=== PATIENT | male | born 1965 | race Two or more races ===

== ENCOUNTER 2020-02-15 18:06 | Inpatient (IN) | payer MEDICARE, OTHER ==
[~2020-02-15] VITALS: Ht 182.9 cm; Wt 127.0 kg
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
[2020-02-16 02:16] VITALS: BP 114/67
[2020-02-16] MEDS ORDERED: ACETAMINOPHEN 325 MG TABLET PO PRN (02:30)
[2020-02-16] MEDS ORDERED: LORAZEPAM 0.5 MG TABLET PO PRN (02:30)
[2020-02-16] MEDS ORDERED: MAGNESIUM HYDROXIDE 30 ML UDC PO PRN (02:30)
[2020-02-16] MEDS ORDERED: ATOR40TA PO (03:03)
[2020-02-16] MEDS ORDERED: LISI40TA4 PO (03:03)
[2020-02-16] MEDS ORDERED: DIVA250T PO (03:03)
[2020-02-16] MEDS ORDERED: SENN-148 PO (03:03)
[2020-02-16] MEDS ORDERED: PENI500T PO (03:03)
[2020-02-16] MEDS ORDERED: CARV6.252 PO (03:03)
[2020-02-16] MEDS ORDERED: ASPI-1169 PO (03:03)
[2020-02-16] MEDS ORDERED: TRAZ-257 PO (03:03)
[2020-02-16 08:00] VITALS: BP 133/79
[2020-02-16] MEDS: ASPIRIN 81 MG TAB.CHEW PO SCH (08:45)
[2020-02-16] MEDS: LISINOPRIL (20MG) 20 MG TABLET PO SCH (08:45)
[2020-02-16] MEDS: CARVEDILOL 6.25 MG TABLET PO SCH ×3 (08:45→17:07)
[2020-02-16] MEDS: ATORVASTATIN 40 MG TABLET PO SCH (08:45)
--- NOTE | 2020-02-16 08:46 | NUR ---
RN NOTE: PT C/O INCREASING ANXIETY. REQUESTING ATIVAN. ATIVAN 0.5 MG PO PRN ADMINISTERED
--- NOTE | 2020-02-16 10:38 | NUR ---
WOUND CARE CONSULT: PT PRESENTS WITH LONG TOENAILS WHICH ARE JAGGED AND HEEL CALLUSES, PRESENT ON ADMISSION. RECOMMEND DPM CONSULT. DR MORRELL NOTIFIED OF DPM CONSULT REQUEST. PT IS INDEPENDENT WITH BED MOBILITY AND IS CONTINENT. WILL SEE PRN.
--- NOTE | 2020-02-16 14:41 | NUR ---
Individual Counseling: This SW met with pt. at bedside to facilitate therapeutic milieu regarding support systems. However, the pt. was sleeping and not easily rousable by verbal cues. Patient will be invited to participate in future counseling session.
[2020-02-16 16:00] VITALS: BP 119/75
[2020-02-16] MEDS: VITAMINS A AND D 56.7 GM TUBE TP SCH (17:07)
[2020-02-16] MEDS ORDERED: DIVALPROEX SODIUM 500 MG TABLET.DR PO SCH (17:30)
[2020-02-16] MEDS: BENZTROPINE MESYLATE (1 MG) 1 MG TABLET PO SCH ×2 (17:56→20:56)
[2020-02-16] MEDS: risperiDONE 1 MG TABLET PO SCH ×2 (17:56→20:56)
[2020-02-16] MEDS: SENNOSIDES 8.6 MG TABLET PO SCH (17:56)
[2020-02-16 20:24] VITALS: BP 129/77
[2020-02-16] MEDS: TEMAZEPAM 7.5 MG CAPSULE PO PRN (21:24)
--- NOTE | 2020-02-16 21:25 | NUR ---
GPS-RN NOTE: INSOMNIA PATIENT C/O INABILITY TO SLEEP. ADMINISTERED RESTORIL 7.5MG PO ORDERED PER PT'S REQUEST. WILL CONTINUE TO MONITOR FOR PATIENT'S SAFETY.
[2020-02-17 06:37] LABS: BILIRUBIN,TOTAL 0.3 mg/dL (0.2-1.0); CALCIUM, SERUM 8.5 mg/dL (8.5-10.1); CREATININE 0.8 mg/dL (0.6-1.3); POTASSIUM 4.3 mmol/L (3.5-5.1); TOTAL PROTEIN, SERUM 6.9 g/dL (6.4-8.2)
[2020-02-17 08:00] VITALS: BP 130/86
[2020-02-17] MEDS: BENZTROPINE MESYLATE (1 MG) 1 MG TABLET PO SCH ×2 (08:33→22:10)
[2020-02-17] MEDS: ASPIRIN 81 MG TAB.CHEW PO SCH (08:33)
[2020-02-17] MEDS: LISINOPRIL (20MG) 20 MG TABLET PO SCH (08:33)
[2020-02-17] MEDS: ATORVASTATIN 40 MG TABLET PO SCH (08:33)
[2020-02-17] MEDS: risperiDONE 1 MG TABLET PO SCH ×4 (08:33→22:10)
[2020-02-17] MEDS: VITAMINS A AND D 56.7 GM TUBE TP SCH ×2 (08:35→16:42)
[2020-02-17] MEDS: CARVEDILOL 6.25 MG TABLET PO SCH ×2 (08:42→16:42)
--- NOTE | 2020-02-17 10:46 | NUR ---
INITIAL DISCHARGE PLAN: Pt is homeless and wishes to be placed at a SNF. SW will refer pt to a SNF and help form a safe and proper discharge in collaboration with .
[2020-02-17 16:00] VITALS: BP 138/99
[2020-02-17] MEDS: DIVALPROEX SODIUM 500 MG TABLET.DR PO SCH (16:41)
[2020-02-17] MEDS: SENNOSIDES 8.6 MG TABLET PO SCH (17:22)
[2020-02-17] MEDS: LORAZEPAM 0.5 MG TABLET PO PRN (20:31)
[2020-02-17 20:54] VITALS: BP 138/87
[2020-02-17] MEDS: TEMAZEPAM 7.5 MG CAPSULE PO PRN (22:09)
[2020-02-18 08:00] VITALS: BP 129/76
[2020-02-18] MEDS: ATORVASTATIN 40 MG TABLET PO SCH (08:31)
[2020-02-18] MEDS: BENZTROPINE MESYLATE (1 MG) 1 MG TABLET PO SCH ×2 (08:31→20:31)
[2020-02-18] MEDS: CARVEDILOL 6.25 MG TABLET PO SCH ×2 (08:32→16:44)
[2020-02-18] MEDS: ASPIRIN 81 MG TAB.CHEW PO SCH (08:32)
[2020-02-18] MEDS: LISINOPRIL (20MG) 20 MG TABLET PO SCH (08:32)
[2020-02-18] MEDS: VITAMINS A AND D 56.7 GM TUBE TP SCH ×2 (08:35→16:46)
--- NOTE | 2020-02-18 13:15 | NUR ---
GPS/RN-NOTES PATIENT WATCHING TV IN THE DAY ROOM,CALM NO ACUTE DISTRESS NOTED.
[2020-02-18] MEDS: risperiDONE 1 MG TABLET PO SCH ×2 (13:17→20:29)
[2020-02-18] MEDS: LORAZEPAM 0.5 MG TABLET PO PRN ×2 (14:20→22:36)
--- NOTE | 2020-02-18 14:20 | NUR ---
GPS/RN-NOTES NOTED PATIENT PUSHING OTHER PATIENT IN THE HALLWAY ANGRY WITH OTHER PATIENT SCREAMING AND YELLING BEHAVIOR. REDIRECTED PATIENT. PATIENT REQUESTING FOR ATIVAN STATED" CAN I HAVE ATIVAN FOR MY ANXIETY" ATIVAN 1MG P.O GIVEN PRN ORDER. WILL CONT. MONITORING FOR SAFETY AND BEHAVIOR.
[2020-02-18 16:00] VITALS: BP 140/77
[2020-02-18] MEDS: DIVALPROEX SODIUM 500 MG TABLET.DR PO SCH (16:41)
[2020-02-18] MEDS: SENNOSIDES 8.6 MG TABLET PO SCH (18:31)
--- NOTE | 2020-02-18 20:00 | NUR ---
Assessment: yamilex suicide ideation. Means: Any possible mechanism but voiced using pills. Hx cutting wrist, patient stated. However, patient behavior remained compliant with unit rules. Will continue to monitor.
[2020-02-18 20:48] VITALS: BP 102/75
[2020-02-18] MEDS: TEMAZEPAM 7.5 MG CAPSULE PO PRN (22:36)
--- NOTE | 2020-02-19 02:00 | NUR ---
Patient remained cooperative. Alert and oriented x2. Follows instruction. Compliant with all unit rules. Requested Ativan 1 mg and Temazepam 7.5 mg PO PRN medication. Tolerated well. Will continue to monitor behavior and medication effectiveness..
[2020-02-19 07:08] LABS: BASOPHILS % (AUTO) 0.6 % (0.0-2.0); EOSINOPHILS % (AUTO) 2.7 % (0.0-6.0); HEMATOCRIT 38 % (39-51); HEMOGLOBIN 13.3 g/dL (13.5-17.5); LYMPHOCYTES # (AUTO) 2.3 /CMM (0.8-4.8); LYMPHOCYTES % (AUTO) 44.1 % (20.0-44.0); MEAN CORPUSCULAR HGB CONC 35 g/dl (31.0-36.0); MEAN CORPUSCULAR VOLUME 89 fL (80-96); MONOCYTES # (AUTO) 0.5 /CMM (0.1-1.30); MONOCYTES % (AUTO) 8.9 % (2.0-12.0); NEUTROPHILS # (AUTO) 2.3 /CMM (1.8-8.9); NEUTROPHILS % (AUTO) 43.7 % (43.0-81.0); PLATELET COUNT (AUTO) 334 /CMM (150-450); WHITE BLOOD COUNT (AUTO) 5.2 K/uL (4.3-11.0)
[2020-02-19 07:20] LABS: ALBUMIN 2.9 g/dL (3.4-5.0); BILIRUBIN,TOTAL 0.3 mg/dL (0.2-1.0); CALCIUM, SERUM 8.4 mg/dL (8.5-10.1); CREATININE 0.7 mg/dL (0.6-1.3); POTASSIUM 4.1 mmol/L (3.5-5.1); TOTAL PROTEIN, SERUM 6.7 g/dL (6.4-8.2)
[2020-02-19 08:00] VITALS: BP 126/87
[2020-02-19] MEDS: risperiDONE 1 MG TABLET PO SCH ×3 (08:25→20:33)
[2020-02-19] MEDS: BENZTROPINE MESYLATE (1 MG) 1 MG TABLET PO SCH ×2 (08:25→20:33)
[2020-02-19] MEDS: ASPIRIN 81 MG TAB.CHEW PO SCH (08:25)
[2020-02-19] MEDS: ATORVASTATIN 40 MG TABLET PO SCH (08:26)
[2020-02-19] MEDS: LISINOPRIL (20MG) 20 MG TABLET PO SCH (08:26)
[2020-02-19] MEDS: CARVEDILOL 6.25 MG TABLET PO SCH ×2 (08:26→16:40)
[2020-02-19] MEDS: VITAMINS A AND D 56.7 GM TUBE TP SCH ×2 (08:36→16:42)
--- NOTE | 2020-02-19 12:31 | NUR ---
SNF Referral: KRISTEN faxed a referral to [facility] with attn to Gio and JENA to the fax number: [phone].
--- NOTE | 2020-02-19 15:02 | NUR ---
INDIVIDUAL INTERVENTION: SW attempted to meet with pt to discuss his symptoms of depression. Pt was asleep and not easily aroused by verbal cues.
[2020-02-19 16:00] VITALS: BP 136/87
[2020-02-19] MEDS: DIVALPROEX SODIUM 500 MG TABLET.DR PO SCH (16:39)
[2020-02-19] MEDS: SENNOSIDES 8.6 MG TABLET PO SCH (17:00)
[2020-02-19 20:40] VITALS: BP 103/60
[2020-02-19] MEDS: LORAZEPAM 0.5 MG TABLET PO PRN (22:40)
[2020-02-19] MEDS: TEMAZEPAM 7.5 MG CAPSULE PO PRN (22:41)
[2020-02-20 08:00] VITALS: BP 145/86
[2020-02-20] MEDS: DIVALPROEX SODIUM 250 MG TABLET.DR PO SCH ×3 (08:30→17:57)
[2020-02-20] MEDS: ASPIRIN 81 MG TAB.CHEW PO SCH (08:31)
[2020-02-20] MEDS: BENZTROPINE MESYLATE (1 MG) 1 MG TABLET PO SCH ×3 (08:31→20:30)
[2020-02-20] MEDS: CARVEDILOL 6.25 MG TABLET PO SCH ×2 (08:31→17:43)
[2020-02-20] MEDS: ATORVASTATIN 40 MG TABLET PO SCH (08:31)
[2020-02-20] MEDS: risperiDONE 1 MG TABLET PO SCH ×3 (08:31→20:30)
[2020-02-20] MEDS: LISINOPRIL (20MG) 20 MG TABLET PO SCH (08:32)
[2020-02-20] MEDS: VITAMINS A AND D 56.7 GM TUBE TP SCH ×2 (08:36→17:43)
--- NOTE | 2020-02-20 12:28 | NUR ---
SNF Referral: KRISTEN faxed the pts Medicare information to [facility] with attn to Gio and JENA to the fax number: [phone].
--- NOTE | 2020-02-20 14:27 | NUR ---
SNF Contact: JENA ([phone]), field care coordinator at [facility], contacted the SW and stated that the pt was accepted to their facility.
[2020-02-20 16:08] VITALS: BP 120/71
[2020-02-20] MEDS ORDERED: DIVALPROEX SODIUM 500 MG TABLET.DR PO SCH (17:00)
[2020-02-20] MEDS ORDERED: DIVALPROEX SODIUM 250 MG TABLET.DR PO SCH ×2 (17:30)
[2020-02-20] MEDS: SENNOSIDES 8.6 MG TABLET PO SCH (17:42)
--- NOTE | 2020-02-20 18:56 | NUR ---
GPS/RN-NOTES PATIENT TOOK $6.00 ON HIS MONEY. BALANCE OF TODAY WAS $35.OO.
[2020-02-20 20:18] VITALS: BP 130/64
[2020-02-20] MEDS: LORAZEPAM 0.5 MG TABLET PO PRN (21:28)
[2020-02-20] MEDS: TEMAZEPAM 7.5 MG CAPSULE PO PRN (21:51)
[2020-02-20] MEDS: MAG HYDROX/AL HYDROX/SIMETH 30 ML UDC PO PRN (22:06)
[2020-02-21 08:00] VITALS: BP 144/89
[2020-02-21] MEDS: DIVALPROEX SODIUM 250 MG TABLET.DR PO SCH ×3 (08:47→17:15)
[2020-02-21] MEDS: ATORVASTATIN 40 MG TABLET PO SCH (08:48)
[2020-02-21] MEDS: ASPIRIN 81 MG TAB.CHEW PO SCH (08:48)
[2020-02-21] MEDS: LISINOPRIL (20MG) 20 MG TABLET PO SCH (08:48)
[2020-02-21] MEDS: risperiDONE 1 MG TABLET PO SCH ×3 (08:48→17:15)
[2020-02-21] MEDS: CARVEDILOL 6.25 MG TABLET PO SCH ×2 (08:48→17:16)
[2020-02-21] MEDS: BENZTROPINE MESYLATE (1 MG) 1 MG TABLET PO SCH ×3 (08:49→17:14)
--- NOTE | 2020-02-21 09:00 | NUR ---
ALERT AND ORIENTED X3.NO DISTRESS.MED COMPLIANT.
[2020-02-21] MEDS: VITAMINS A AND D 56.7 GM TUBE TP SCH ×2 (09:10→17:00)
[2020-02-21 16:00] VITALS: BP 102/62
[2020-02-21] MEDS: SENNOSIDES 8.6 MG TABLET PO SCH ×2 (17:15→18:00)
[2020-02-21 20:00] VITALS: BP 136/90
[2020-02-21] MEDS: LORAZEPAM 0.5 MG TABLET PO PRN (22:15)
--- NOTE | 2020-02-21 22:18 | NUR ---
GPS RN NOTES: ANXIOUS PT C/O OF FEELING ANXIOUS. PT REQUESTED ATIVAN. OFFERED ATIVAN PRN ORDERED. PT AGREED AND TOLERATED MEDICATION WELL. CONTINUE TO MONITOR.
[2020-02-21] MEDS: TEMAZEPAM 7.5 MG CAPSULE PO PRN (22:53)
--- NOTE | 2020-02-21 22:54 | NUR ---
GPS RN NOTES: INSOMNIA PT C/O UNABLE TO SLEEP. PT REQUESTED RESTORIL. OFFERED RESTORIL PO PRN ORDERED. PT AGREED AND TOLERATED MEDICATION WELL. CONTINUE TO MONITOR.
[2020-02-22 08:00] VITALS: BP 136/78
[2020-02-22] MEDS: ATORVASTATIN 40 MG TABLET PO SCH (08:20)
[2020-02-22] MEDS: ASPIRIN 81 MG TAB.CHEW PO SCH (08:20)
[2020-02-22] MEDS: DIVALPROEX SODIUM 250 MG TABLET.DR PO SCH ×2 (08:20→20:05)
[2020-02-22] MEDS: risperiDONE 1 MG TABLET PO SCH ×3 (08:21→16:42)
[2020-02-22] MEDS: LISINOPRIL (20MG) 20 MG TABLET PO SCH (08:21)
[2020-02-22] MEDS: BENZTROPINE MESYLATE (1 MG) 1 MG TABLET PO SCH ×3 (08:21→16:41)
[2020-02-22] MEDS: CARVEDILOL 6.25 MG TABLET PO SCH ×2 (08:21→16:41)
[2020-02-22] MEDS: VITAMINS A AND D 56.7 GM TUBE TP SCH ×2 (08:41→16:45)
[2020-02-22 16:00] VITALS: BP 119/74
[2020-02-22] MEDS: SENNOSIDES 8.6 MG TABLET PO SCH (18:00)
[2020-02-22 20:33] VITALS: BP 138/80
[2020-02-22] MEDS: LORAZEPAM 0.5 MG TABLET PO PRN (21:56)
--- NOTE | 2020-02-22 21:56 | NUR ---
GPS RN NOTE: ANXIETY PT. C/O OF ANXIETY AND REQUESTED ATIVAN. ADMINISTERED ATIVAN 1MG PO PRN ORDERED. WILL CONTINUE TO MONITOR FOR SAFETY AND BEHAVIOR
[2020-02-22] MEDS: MAG HYDROX/AL HYDROX/SIMETH 30 ML UDC PO PRN (22:27)
--- NOTE | 2020-02-22 22:27 | NUR ---
GPS RN NOTE: INDIGESTION PT. C/O OF INDIGESTION. ADMINISTERED MAALOX 30 ML PO PRN ORDERED. WILL CONTINUE TO MONITOR FOR SAFETY AND BEHAVIOR.
[2020-02-22] MEDS: TEMAZEPAM 7.5 MG CAPSULE PO PRN (22:41)
--- NOTE | 2020-02-22 22:41 | NUR ---
GPS RN NOTE: INSOMNIA PT. C/O UNABLE TO SLEEP. ADMINISTERED RESTORIL 7.5 MG PO PRN ORDERED. WILL CONTINUE TO MONITOR FOR SAFETY AND BEHAVIOR.
[2020-02-23 08:00] VITALS: BP 149/99
[2020-02-23] MEDS: risperiDONE 1 MG TABLET PO SCH ×3 (08:33→16:20)
[2020-02-23] MEDS: ATORVASTATIN 40 MG TABLET PO SCH (08:33)
[2020-02-23] MEDS: ASPIRIN 81 MG TAB.CHEW PO SCH (08:34)
[2020-02-23] MEDS: CARVEDILOL 6.25 MG TABLET PO SCH ×2 (08:34→16:21)
[2020-02-23] MEDS: LISINOPRIL (20MG) 20 MG TABLET PO SCH (08:34)
[2020-02-23] MEDS: BENZTROPINE MESYLATE (1 MG) 1 MG TABLET PO SCH ×3 (08:34→16:20)
[2020-02-23] MEDS: VITAMINS A AND D 56.7 GM TUBE TP SCH ×2 (08:35→16:22)
[2020-02-23] MEDS: DIVALPROEX SODIUM 250 MG TABLET.DR PO SCH ×2 (08:49→20:10)
--- NOTE | 2020-02-23 10:29 | NUR ---
RN-CO: Patient refused 1st attempt of lab works.
[2020-02-23 14:32] LABS: ALBUMIN 2.9 g/dL (3.4-5.0); BILIRUBIN,TOTAL 0.2 mg/dL (0.2-1.0); CALCIUM, SERUM 8.5 mg/dL (8.5-10.1); CREATININE 0.8 mg/dL (0.6-1.3); TOTAL PROTEIN, SERUM 6.8 g/dL (6.4-8.2)
[2020-02-23 15:26] LABS: BASOPHILS % (AUTO) 0.9 % (0.0-2.0); EOSINOPHILS % (AUTO) 2.6 % (0.0-6.0); HEMATOCRIT 41 % (39-51); HEMOGLOBIN 13.7 g/dL (13.5-17.5); LYMPHOCYTES # (AUTO) 2.5 /CMM (0.8-4.8); LYMPHOCYTES % (AUTO) 48.9 % (20.0-44.0); MEAN CORPUSCULAR HGB CONC 34 g/dl (31.0-36.0); MEAN CORPUSCULAR VOLUME 89 fL (80-96); MONOCYTES # (AUTO) 0.3 /CMM (0.1-1.30); MONOCYTES % (AUTO) 5.7 % (2.0-12.0); NEUTROPHILS # (AUTO) 2.2 /CMM (1.8-8.9); NEUTROPHILS % (AUTO) 41.9 % (43.0-81.0); PLATELET COUNT (AUTO) 342 /CMM (150-450); RED BLOOD CELL COUNT(AUTO) 4.61 MIL/uL (4.5-6.0); WHITE BLOOD COUNT (AUTO) 5.2 K/uL (4.3-11.0)
[2020-02-23 16:00] VITALS: BP 114/62
[2020-02-23] MEDS: SENNOSIDES 8.6 MG TABLET PO SCH (18:00)
[2020-02-23 20:44] VITALS: BP 133/60
[2020-02-23] MEDS: TEMAZEPAM 7.5 MG CAPSULE PO PRN (21:31)
--- NOTE | 2020-02-23 21:31 | NUR ---
GPS-RN NOTE: INSOMNIA PATIENT C/O INABILITY TO SLEEP. ADMINISTERED RESTORIL 7.5MG PO ORDERED. WILL CONTINUE TO MONITOR.
[2020-02-24 08:00] VITALS: BP 137/85
[2020-02-24] MEDS: LISINOPRIL (20MG) 20 MG TABLET PO SCH (08:08)
[2020-02-24] MEDS: CARVEDILOL 6.25 MG TABLET PO SCH ×2 (08:09→16:48)
[2020-02-24] MEDS: ASPIRIN 81 MG TAB.CHEW PO SCH (08:09)
[2020-02-24] MEDS: BENZTROPINE MESYLATE (1 MG) 1 MG TABLET PO SCH ×3 (08:09→16:48)
[2020-02-24] MEDS: ATORVASTATIN 40 MG TABLET PO SCH (08:09)
[2020-02-24] MEDS: VITAMINS A AND D 56.7 GM TUBE TP SCH ×2 (08:10→16:47)
[2020-02-24] MEDS: risperiDONE 1 MG TABLET PO SCH ×3 (08:29→16:48)
[2020-02-24] MEDS: DIVALPROEX SODIUM 250 MG TABLET.DR PO SCH ×3 (08:29→20:01)
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
[2020-02-24 16:00] VITALS: BP 146/63
[2020-02-24] MEDS: SENNOSIDES 8.6 MG TABLET PO SCH (17:07)
[2020-02-24 20:14] VITALS: BP 123/78
[2020-02-24] MEDS: TEMAZEPAM 7.5 MG CAPSULE PO PRN (21:38)
--- NOTE | 2020-02-24 21:38 | NUR ---
RN NOTES PATIENT STATING HE IS HAVING TROUBLE FALLING ASLEEP, AND REQUESTING SLEEPING AID. ADMINISTERED PRN RESTORIL 7.5mg PO. WILL CONTINUE TO MONITOR PATIENT.
--- NOTE | 2020-02-25 07:00 | NUR ---
RN NOTES DR. LEO SPOKE WITH PATIENT AND ASSESSED PATIENT. WILL FOLLOW UP WITH ORDERS, AND WILL ENDORSE TO DAYSHIFT NURSE.
[2020-02-25 08:00] VITALS: BP 136/81
[2020-02-25] MEDS: risperiDONE 1 MG TABLET PO SCH ×2 (10:08→18:25)
[2020-02-25] MEDS: BENZTROPINE MESYLATE (1 MG) 1 MG TABLET PO SCH ×3 (10:08→18:26)
[2020-02-25] MEDS: DIVALPROEX SODIUM 250 MG TABLET.DR PO SCH ×3 (10:08→20:32)
[2020-02-25] MEDS: CARVEDILOL 6.25 MG TABLET PO SCH ×2 (10:08→18:29)
[2020-02-25] MEDS: ASPIRIN 81 MG TAB.CHEW PO SCH (10:09)
[2020-02-25] MEDS: ATORVASTATIN 40 MG TABLET PO SCH (10:09)
[2020-02-25] MEDS: VITAMINS A AND D 56.7 GM TUBE TP SCH ×3 (10:13→18:46)
[2020-02-25] MEDS: LISINOPRIL (20MG) 20 MG TABLET PO SCH (10:13)
--- NOTE | 2020-02-25 10:30 | NUR ---
salvatore salazar gemologist here and informed pt. coughed up dime sized amt. of bloody tinged sputum last night.given orders
--- NOTE | 2020-02-25 14:17 | NUR ---
INDIVIDUAL INTERVENTION: SW met with pt at bedside to discuss pts suicidal ideation and hallucinations. Pt states he continues to hear voices that tell him to kill himself. Pt states that while in the hospital he does not have urges to act out but states that he does not know if he will have a plan once discharged. SW discussed positive coping skills with pt and identified triggers with him.
[2020-02-25 16:00] VITALS: BP 137/79
[2020-02-25] MEDS: SENNOSIDES 8.6 MG TABLET PO SCH ×2 (18:00→18:25)
[2020-02-25 20:06] VITALS: BP 118/73
[2020-02-25] MEDS: TEMAZEPAM 7.5 MG CAPSULE PO PRN (21:45)
[2020-02-26 08:00] VITALS: BP 128/80
[2020-02-26] MEDS: LISINOPRIL (20MG) 20 MG TABLET PO SCH (08:33)
[2020-02-26] MEDS: ASPIRIN 81 MG TAB.CHEW PO SCH (08:33)
[2020-02-26] MEDS: BENZTROPINE MESYLATE (1 MG) 1 MG TABLET PO SCH (08:33)
[2020-02-26] MEDS: ATORVASTATIN 40 MG TABLET PO SCH (08:33)
[2020-02-26] MEDS: DIVALPROEX SODIUM 250 MG TABLET.DR PO SCH ×3 (08:33→20:40)
[2020-02-26] MEDS: risperiDONE 1 MG TABLET PO SCH (08:33)
[2020-02-26] MEDS: CARVEDILOL 6.25 MG TABLET PO SCH ×2 (08:34→16:30)
[2020-02-26] MEDS: VITAMINS A AND D 56.7 GM TUBE TP SCH ×2 (08:34→17:31)
--- NOTE | 2020-02-26 15:12 | NUR ---
Individual Counseling: This SW met [facility] to facilitate counseling regarding positive coping mechanisms. The patient presented laying in bed and was receptive to speaking with SW. The patient stated that in the past he has used eating to cope with the of his brother 1 year ago. Per patient, he also likes to "walk to get his thoughts right" and use venting to cope. SW discussed grief and loss with pt. and inquired about pt.'s support system. Patient stated he has a son but doesn't want to "worry" his son by telling him about his psychiatric hospitalization. SW discussed about communication,the importance of support systems and normalized mental health for pt. Per patient, he will attempt to be more transparent with his son in the future as he wants to feel supported. The patient remained calm and cooperative throughout discussion. Pt. will be invited to attend future therapeutic milieu.
[2020-02-26 16:00] VITALS: BP 108/64
[2020-02-26] MEDS: SENNOSIDES 8.6 MG TABLET PO SCH (17:31)
[2020-02-26 20:43] VITALS: BP 146/96
[2020-02-26] MEDS: TEMAZEPAM 7.5 MG CAPSULE PO PRN (22:01)
--- NOTE | 2020-02-26 22:01 | NUR ---
GPS-RN NOTE: INSOMNIA PATIENT C/O INABILITY TO SLEEP. ADMINISTERED RESTORIL 7.5MG PO ORDERED PER PT'S REQUEST. WILL CONTINUE TO MONITOR.
[2020-02-27] MEDS: LORAZEPAM 0.5 MG TABLET PO PRN (00:45)
--- NOTE | 2020-02-27 00:45 | NUR ---
GPS-RN NOTE: ANXIETY PATIENT C/O INCREASED ANXIETY. PT REQUESTING ATIVAN. ADMINISTERED ATIVAN 1MG PO ORDERED. WILL CONTINUE TO MONITOR FOR PT'S SAFETY.
[2020-02-27] MEDS: MAG HYDROX/AL HYDROX/SIMETH 30 ML UDC PO PRN ×2 (01:12→15:31)
--- NOTE | 2020-02-27 01:13 | NUR ---
GPS RN NOTE: INDIGESTION PT. C/O OF INDIGESTION. ADMINISTERED MAALOX 30 ML PO PRN ORDERED. WILL CONTINUE TO MONITOR.
[2020-02-27] MEDS: DIVALPROEX SODIUM 250 MG TABLET.DR PO SCH ×3 (08:02→19:48)
[2020-02-27] MEDS: LISINOPRIL (20MG) 20 MG TABLET PO SCH (08:02)
[2020-02-27] MEDS: ATORVASTATIN 40 MG TABLET PO SCH (08:02)
[2020-02-27] MEDS: ASPIRIN 81 MG TAB.CHEW PO SCH (08:02)
[2020-02-27] MEDS: VITAMINS A AND D 56.7 GM TUBE TP SCH ×2 (08:04→17:01)
[2020-02-27] MEDS: CARVEDILOL 6.25 MG TABLET PO SCH ×2 (08:04→17:00)
[2020-02-27 08:19] VITALS: BP 122/89
--- NOTE | 2020-02-27 09:00 | NUR ---
RN NOTE- PT IN BED SLEEPING EASILY AWAKENED, MED COMPLIANT NEEDS ATTENDED, PO INTAKE GOOD. STATES 'IM GOING HOME SUNDAY' WISHES TO BE LEFT ALONE. ISOLATIVE DENIES ALL.
--- NOTE | 2020-02-27 14:47 | NUR ---
Individual Counseling: This SW met with the pt. at beside to facilitate 1on1 counseling. However, pt. was sleeping and rousable by verbal cues. Patient declined to meet with SW stating he wanted to rest. SW validated the patient and encourage pt. to check-in with SW. Patient, stated he was fine and would like to be left alone. SW respected patient's boundaries and encouraged patient to participate in activities held in activity room later on. Pt. will be invited to attend future therapeutic milieu.
--- NOTE | 2020-02-27 15:31 | NUR ---
RN NOTE- PT C/O DYSPEPSIA. MAALOX 30CC GIVEN
[2020-02-27 15:53] VITALS: BP 108/79
[2020-02-27] MEDS: SENNOSIDES 8.6 MG TABLET PO SCH (17:01)
--- NOTE | 2020-02-27 19:18 | NUR ---
GPS/RN OPENING NOTES RECEIVED PATIENT IN THE ROOM, AWAKE, ALERT, ABLE TO AMBULATE SAFELY , VERBALIZES NEEDS, CAN RESPOND AND COOPERATE. RESPIRATIONS EVEN AND UNLABORED, SKIN WARM TO TOUCH. PROVIDED NEEDS. RECEIVED ENDORSEMENT FROM AM RN FOR RACHEL. PATIENT INQUIRED ABOUT GOING HOME TO FOLLOW UP.
[2020-02-27] MEDS: OLANZAPINE 5 MG TABLET PO SCH (19:48)
[2020-02-27 20:00] VITALS: BP 128/72
[2020-02-27 20:14] VITALS: BP 128/72
--- NOTE | 2020-02-27 22:38 | NUR ---
GPS/RN NOTES PATIENT AWAKEN FROM SLEEP REQUESTED FOR SOME COLD MILK TO EAT HIS SANDWICH. MONITORED FOR ANY DISCOMFORT. ABLE TO VERBALIZE NEEDS.
[2020-02-28 08:00] VITALS: BP 112/69
[2020-02-28] MEDS: ASPIRIN 81 MG TAB.CHEW PO SCH (08:42)
[2020-02-28] MEDS: DIVALPROEX SODIUM 250 MG TABLET.DR PO SCH ×3 (08:42→20:25)
[2020-02-28] MEDS: ATORVASTATIN 40 MG TABLET PO SCH (08:42)
[2020-02-28] MEDS: LISINOPRIL (20MG) 20 MG TABLET PO SCH (08:50)
[2020-02-28] MEDS: CARVEDILOL 6.25 MG TABLET PO SCH ×2 (08:50→17:33)
[2020-02-28] MEDS: VITAMINS A AND D 56.7 GM TUBE TP SCH ×2 (08:51→17:34)
[2020-02-28 16:00] VITALS: BP 128/90
[2020-02-28] MEDS: SENNOSIDES 8.6 MG TABLET PO SCH (17:33)
[2020-02-28 20:00] VITALS: BP_SYST 112; BP_SYST 147; BP_DIAS 69; BP_DIAS 92
[2020-02-28] MEDS: TEMAZEPAM 7.5 MG CAPSULE PO PRN (20:25)
[2020-02-28] MEDS: OLANZAPINE 5 MG TABLET PO SCH (20:25)
[2020-02-29 08:00] VITALS: BP 129/86
[2020-02-29] MEDS: ASPIRIN 81 MG TAB.CHEW PO SCH (08:20)
[2020-02-29] MEDS: DIVALPROEX SODIUM 250 MG TABLET.DR PO SCH ×3 (08:20→20:28)
[2020-02-29] MEDS: CARVEDILOL 6.25 MG TABLET PO SCH ×2 (08:21→16:14)
[2020-02-29] MEDS: ATORVASTATIN 40 MG TABLET PO SCH (08:21)
[2020-02-29] MEDS: LISINOPRIL (20MG) 20 MG TABLET PO SCH (08:23)
[2020-02-29] MEDS: VITAMINS A AND D 56.7 GM TUBE TP SCH ×2 (08:25→16:19)
[2020-02-29] MEDS: MAG HYDROX/AL HYDROX/SIMETH 30 ML UDC PO PRN (10:36)
[2020-02-29 15:38] VITALS: BP 131/86
[2020-02-29 16:00] VITALS: BP 131/86
[2020-02-29] MEDS: SENNOSIDES 8.6 MG TABLET PO SCH (17:00)
[2020-02-29 19:44] VITALS: BP 116/70
[2020-02-29] MEDS: OLANZAPINE 5 MG TABLET PO SCH (20:29)
[2020-02-29] MEDS: TEMAZEPAM 7.5 MG CAPSULE PO PRN (21:16)
[2020-03-01 08:00] VITALS: BP 116/62
[2020-03-01 08:48] VITALS: BP 116/62
[2020-03-01] MEDS: CARVEDILOL 6.25 MG TABLET PO SCH (08:48)
[2020-03-01] MEDS: ASPIRIN 81 MG TAB.CHEW PO SCH (08:48)
[2020-03-01] MEDS: ATORVASTATIN 40 MG TABLET PO SCH (08:48)
[2020-03-01] MEDS: LISINOPRIL (20MG) 20 MG TABLET PO SCH (08:48)
[2020-03-01] MEDS: DIVALPROEX SODIUM 250 MG TABLET.DR PO SCH ×2 (08:48→12:29)
[2020-03-01] MEDS: VITAMINS A AND D 56.7 GM TUBE TP SCH (08:49)
--- NOTE | 2020-03-01 09:00 | NUR ---
RN NOTE- PT SLEEPING AWAKENS EASILY DENIES ALL MED COMPLIANT PO INTAKE GOOD NO BEHAVIORAL ISSUES DC TODAY
--- NOTE | 2020-03-01 12:58 | NUR ---
SNF Contact: SW faxed the pts vitals since admission and a clearance note to [facility] with attn to Gio and JENA to the fax number: [phone].
--- NOTE | 2020-03-01 15:24 | NUR ---
SOFTWARE TEAM LEADER NOTE- [facility]. PT DC INSTRUCTIONS AND DC PLANNING REVIEWED WITH PT AND AMBULANCE STAFF. VERBALIZED UNDERSTANDING. PT DENIES SI HI AH VH AT PRESENT MOMENT. VS STABLE. IN NO DISTRESS. VALUABLES RETURNED TO PT AND SIGNED FOR. ID [id number] REMOVED AND PT ESCORTED OFF UNIT BY STAFF. REPORT CALLED TO FACILITY THIS MORNING BY THIS RN
--- NOTE | 2020-03-01 16:19 | NUR ---
Discharge Note: Pt was discharged to [facility] located at [address] [place] [id number]; ([phone]). Pt was transported via [facility] at 1PM. There was no one to notify to about the pts discharge; pt is homeless. Upon discharge, the pt appeared to be in a euthymic mood and presented with a calm affect. Pt appeared to be alert and oriented x4 (time, place, self and situation). Pt denied both suicidal and homicidal ideation as well as auditory and visual hallucinations. Pt appears to be ambulatory with a steady gait. Pt appears to be groomed and appropriately dressed. SW provided the pt with homeless resources and three substance abuse referrals that are presented below. Pt was referred to be under the care of psychiatrist, Dr. mC, located at [address] [address]; and broker assistant, Dr. Garner, located at [address] [place] [address]; . Pt signed the choice of vendor and homeless waiver.
== END 2020-03-01 15:52 | DRG 885 ==
LOC: GPS 02-16 01:20
PROVIDERS: ADMIT Psychiatry & Neurology Psychosomatic Medicine; ATTEND Internal Medicine
DX: F25.0 Schizoaffective disorder, bipolar type (principal); N17.0 Acute kidney failure with tubular necrosis; R45.851 Suicidal ideations; E44.0 Moderate protein-calorie malnutrition; F29 Unspecified psychosis not due to a substance or known physiological condition; I10 Essential (primary) hypertension; E78.5 Hyperlipidemia, unspecified; B35.1 Tinea unguium; G25.81 Restless legs syndrome; F10.10 Alcohol abuse, uncomplicated; F14.10 Cocaine abuse, uncomplicated; Z68.38 Body mass index [BMI] 38.0-38.9, adult; E88.09 Other disorders of plasma-protein metabolism, not elsewhere classified; L85.3 Xerosis cutis; M79.672 Pain in left foot; M79.671 Pain in right foot
CPT/HCPCS: 36415; 80053-TC; 80164-TC; 82728-TC; 82962-TC; 85025-TC; 87081-TC